=== PATIENT | male | born 1970 | race Two or more races ===

== ENCOUNTER 2019-04-09 01:10 | Emergency (ER) | payer MEDICAID ==
[~2019-04-09] VITALS: Ht 175.3 cm; Wt 95.3 kg
[2019-04-09 07:30] VITALS: BP 106/51
== END 2019-04-09 09:21 | disposition left against medical advice (07) ==
LOC: EDSEX 01:10 → EDBD 01:10 → ER 01:15
DX: S05.12XA Contusion of eyeball and orbital tissues, left eye, initial encounter (principal); S40.012A Contusion of left shoulder, initial encounter; Z88.0 Allergy status to penicillin; Y04.0XXA Assault by unarmed brawl or fight, initial encounter; Y93.89 Activity, other specified; Y92.89 Other specified places as the place of occurrence of the external cause; Y99.8 Other external cause status
CPT/HCPCS: 36415; 70450; 70486; 73030; 80320